=== PATIENT | male | born 1985 | race African-American/Black ===

== ENCOUNTER 2024-02-06 16:43 | Inpatient (IN) | payer OTHER, SELFPAY ==
[2024-02-06] VITALS (45 sets, daily range): BP systolic 119–154; BP diastolic 62–102; PULSE 109–141; RESP 16–34; TEMP 36.3–36.6; O2SAT 93–100; BMI 38.0
--- NOTE | 2024-02-06 18:27 | ED_ITS ---
HPI - General Adult 2 General: Chief complaint: General Medical Stated complaint: SOB, high BP, dehydrated, doctor sent Time Seen by Provider: 02/06/24 18:22 History of Present Illness: 38-year-old male patient comes in today with complaints of being dehydrated. Patient reports that it was his birthday over the weekend and he had celebrated too heavily. Patient states that he usually takes metformin which controls his blood glucose well. Patient went to see Dr. Pace today just for feeling poorly and it was noted his blood glucose was above 500. He referred him to the ER for further evaluation and treatment. Patient is alert and oriented. Patient appears nontoxic. Review of Systems 2 General: Reports: 10 or more systems reviewed and unremarkable except in HPI and below Physical Exam 2 Const: COMMON NORMALS: alert HENMT: COMMON NORMALS: normocephalic HEAD & SCALP: normocephalic Neck/C-Spine: COMMON NORMALS: full ROM Resp: COMMON NORMALS: normal respiratory effort and clear to auscultation bilaterally AUSCULTATION: clear to auscultation bilaterally Cardio: COMMON NORMALS: regular rate RATE: regular rate GI: COMMON NORMALS: non-tender Back/Pelvis: COMMON NORMALS: thoracic and lumbar spine normal to inspection Extremity: COMMON NORMALS: full ROM Neuro: SENSORIUM/ORIENTATION: Yes alert Skin: COMMON NORMALS: turgor normal GENERAL SKIN EXAM: turgor normal Course 2 Vital Signs: Vital signs: Vital Signs Temperature 97.9 F 02/06/24 20:56 Pulse Rate 117 H 02/06/24 20:22 Respiratory Rate 16 02/06/24 20:22 Blood Pressure 119/62 02/06/24 20:22 Pulse Oximetry 94 02/06/24 20:22 Oxygen Delivery Me thod Room Air 02/06/24 20:41 MDM - General Adult Medical Decision Making Patient came in today for concerns of elevated blood glucose. Patient appears nontoxic. Patient reports no nausea vomiting. Skin is warm and dry. Vital signs note a blood pressure 123/82. Pulse was elevated at 114. Patient is afebrile. Differential diagnosis includes but not limited to DKA, nonketotic acidosis hyperosmolar diabetic syndrome, hyperglycemia, dehydration. 194, patient was noted to have ketones I discussed this with Dr. Becerra who we put in a DKA protocol. Added ABG orders, phosphorus and magnesium. Patient had already been given 10 units of Humalog subcu we added another 9 units IV push. Patient be continued on IV fluid bolus. And given 1 g of calcium gluconate for a potassium of 6.4. We will continue to push IV fluids. Dr. Becerra recommended talking with the hospitalist for further recommendations of treatment plan. Dr. Alexander was consulted who agreed to admission and continuing treatment. Lab Data 02/06/24 18:34 02/06/24 18:34 Laboratory Results WBC 9.79 10^3/uL (3.29-11.43) 02/06/24 18:34 RBC 7.39 10^6/uL (3.85-5.65) H 02/06/24 18:34 Hgb 14.80 g/dL (11.27-16.99) 02/06/24 18:34 Hct 47.6 % (37-53) 02/06/24 18:34 MCV 64.4 fl (82-101) L 02/06/24 18:34 MCH 20.0 pg (27-33) L 02/06/24 18:34 MCHC 31.1 g/dL (30-55) 02/06/24 18:34 RDW 18.1 % (12.1-15.1) H 02/06/24 18:34 Plt Count 317 10^3/cmm (157-399) 02/06/24 18:34 MPV TNP 02/06/24 18:34 Neut % (Auto) 84.0 % 02/06/24 18:34 Lymph % (Auto) 8.3 % 02/06/24 18:34 [place] % (Auto) 6.9 % 02/06/24 18:34 Eos % (Auto) 0.0 % 02/06/24 18:34 Baso % (Auto) 0.2 % 02/06/24 18:34 Neut # (Auto) 8.22 10^3/uL (1.8-7.7) H 02/06/24 18:34 Lymph # (Auto) 0.8 10^3/uL (0.8-4.8) 02/06/24 18:34 [place] # (Auto) 0.7 10^3/uL (0.2-0.9) 02/06/24 18:34 Eos # (Auto) 0.0 10^3/uL (0.0-0.8) 02/06/24 18:34 Baso # (Auto) 0.0 10^3/uL (0.0-0.1) 02/06/24 18:34 Nucleated RBC % (auto) 0 % 02/06/24 18:34 Nucleated RBCs # 0.0 /100WBC 02/06/24 18:34 Specimen Type Arterial 02/06/24 19:30 Sample Site Radial, right 02/06/24 19:30 ABG pH 7.22 (7.35-7.45) L 02/06/24 19:30 ABG pCO2 22.7 mmHg (35-45) L 02/06/24 19:30 ABG pO2 114.0 mmHg (80.0-100.0) H 02/06/24 19:30 ABG HCO3 9.3 mmol/L (22-26) L 02/06/24 19:30 ABG Base Excess -16.3 mmol/L (-2.0-2.0) L 02/06/24 19:30 Romie Test Pos 02/06/24 19:30 Hematocrit 45.3 % (42-52) 02/06/24 19:30 O2 Delivery Device Room air 02/06/24 19:30 Order Processor ID [email or web address] 02/06/24 19:30 Sodium 123 mmol/L (136-145) L 02/06/24 18:34 Potassium 6.4 mmol/L (3.5-5.1) H 02/06/24 18:34 Chloride 81 mmol/L (98-107) L 02/06/24 18:34 Carbon Dioxide 10 mmol/L (22-29) L 02/06/24 18:34 Anion Gap 38.4 (5-19) H 02/06/24 18:34 BUN 32 mg/dL (6-20) H 02/06/24 18:34 Creatinine 2.0 mg/dL (0.7-1.2) H 02/06/24 18:34 GFR Calculation 45.5 mL/min (90-130) L 02/06/24 18:34 Glucose 1237 mg/dL (65-115) H* 02/06/24 18:34 POC Glucose > 600 mg/dL (70-110) H* 02/06/24 19:12 Calculated Osmolality 326 mOsm/kg (285-295) H 02/06/24 18:34 Calcium 10.7 mg/dL (8.5-10.5) H 02/06/24 18:34 Phosphorus 6.6 mg/dL (2.5-4.5) H 02/06/24 18:34 Magnesium 3.2 mg/dL (1.7-2.3) H 02/06/24 18:34 Total Bilirubin 0.5 mg/dL (0.15-1.2) 02/06/24 18:34 AST 19 U/L (0-40) 02/06/24 18:34 ALT 49 U/L (0-41) H 02/06/24 18:34 Alkaline Phosphatase 117 U/L (40-130) 02/06/24 18:34 Total Protein 8.4 g/dL (6.6-8.7) 02/06/24 18:34 Albumin 4.7 g/dL (3.5-5.2) 02/06/24 18:34 Globulin 3.7 g/dL (1.3-4.6) 02/06/24 18:34 Urine Color Yellow (Yellow) 02/06/24 19:04 Urine Appearance Clear (CLEAR) 02/06/24 19:04 Urine pH 5 (5-7) 02/06/24 19:04 Ur Specific [place] 1.005 (1.005-1.030) 02/06/24 19:04 Urine Protein Neg (Negative) 02/06/24 19:04 Urine Glucose (UA) 4+ (Normal) H 02/06/24 19:04 Urine Ketones 2+ (Negative) H 02/06/24 19:04 Urine Blood Neg (Negative) 02/06/24 19:04 Urine Nitrate Negative (Negative) 02/06/24 19:04 Urine Bilirubin Neg (Negative) 02/06/24 19:04 Urine Urobilinogen Norm mg/dL (Negative) 02/06/24 19:04 Ur Leukocyte Esterase Negative (Negative) 02/06/24 19:04 Serum Ketones Positive (Negative) H 02/06/24 18:34 XR interpretation done by ED provider, pending radiology final review Discharge Plan Discharge Patient Disposition: Admitted As Inpatient Admit Provider: Benjamin,Campbell Clinical Impression: DKA (diabetic ketoacidosis) Qualifiers: Diabetes mellitus type: type 2 Diabetes mellitus complication detail: without coma Qualified Code(s): E11.10 - Type 2 diabetes mellitus with ketoacidosis without coma Condition: Stable Coding Level of Care Code ED Fire Control Technician G for Davie Phillips
[2024-02-06 18:54] LABS: Basophils % 0.2 %; Hematocrit 47.6 % (37-53); Lymphocytes # 0.8 10^3/uL (0.8-4.8); Lymphocytes % 8.3 %; Mean Corpuscular HGB Conc 31.1 g/dL (30-55); Mean Corpuscular Volume 64.4 fl (82-101); Monocytes # 0.7 10^3/uL (0.2-0.9); Monocytes % 6.9 %; Neutrophils # 8.22 10^3/uL (1.8-7.7); Nucleated Red Blood Cells % 0 %; Platelet Count 317 10^3/cmm (157-399); Red Blood Count 7.39 10^6/uL (3.85-5.65); Red Cell Distribution Width 18.1 % (12.1-15.1); White Blood Count 9.79 10^3/uL (3.29-11.43)
[2024-02-06 19:06] LABS: Ketone (Acetest) Serum Positive (Negative)
[2024-02-06] MEDS: sodium chloride 0.9% 1,000 ML 999 ML IV ×2 (19:13→21:31)
[2024-02-06 19:16] LABS: Add Urine Microscopic? NO; Charge for UA Resulting for Rev
[2024-02-06] MEDS: insulin lispro 100 unit/1 mL 10 UNIT SUBCUT (19:19)
[2024-02-06 19:21] LABS: Glucose Point of Care > 600 mg/dL (70-110)
[2024-02-06 19:26] LABS: Alanine Aminotransferase 49 U/L (0-41); Albumin Level 4.7 g/dL (3.5-5.2); Alkaline Phosphatase 117 U/L (40-130); Anion Gap 38.4 (5-19); Aspartate Amino Transferase 19 U/L (0-40); Blood Urea Nitrogen 32 mg/dL (6-20); Calcium 10.7 mg/dL (8.5-10.5); Carbon Dioxide 10 mmol/L (22-29); Chloride 81 mmol/L (98-107); Globulin 3.7 g/dL (1.3-4.6); Glomerular Filtration Rate 45.5 mL/min (90-130); Potassium 6.4 mmol/L (3.5-5.1); Sodium 123 mmol/L (136-145); Total Bilirubin 0.5 mg/dL (0.15-1.2); Total Protein 8.4 g/dL (6.6-8.7)
--- NOTE | 2024-02-06 19:30 | ECG_ITS ---
[facility] Test Date: 2024-02-06 Pat Name: Barrera Guerra Department: Room: [facility] Gender: Male Manager Income Tax: : 1985 Requested By: Oliver Becerra Order Number: [id number] Satish MD: Jazzy Monet M.D. Measurements Intervals [place] Rate: 116 P: 67 UT: 120 QRS: 22 QRSD: 93 T: 6 QT: 354 QTc: 494 Interpretive Statements SINUS TACHYCARDIA POSSIBLE LEFT ATRIAL ENLARGEMENT [-0.1mV P-WAVE IN V1/V2] NONSPECIFIC ST & T-WAVE ABNORMALITY ABNORMAL RHYTHM ECG No previous ECG available for comparison Electronically Signed On 02-06-2024 22:05:11 CDT by Jazzy Monet M.D. [id number]
[2024-02-06 19:33] LABS: Bilirubin Urine Neg (Negative); Blood Urine Neg (Negative); Glucose Urine UA 4+ (Normal); Ketones Urine 2+ (Negative); Leukocyte Esterase Urine Negative (Negative); Nitrate Urine Negative (Negative); Protein Urine Neg (Negative); Specific Gravity, Urine 1.005 (1.005-1.030); Urine Appearance Clear (CLEAR); Urine Color Yellow (Yellow); Urobilinogen Urine Norm (Negative); pH Urine 5 (5-7)
[2024-02-06 19:36] LABS: Osmolality Calculated 326 mOsm/kg (285-295)
[2024-02-06 19:37] LABS: Glucose 1237 mg/dL (65-115)
[2024-02-06 19:43] LABS: ABG PH Result 7.22 (7.35-7.45); Blood Gas Allen Test Pos; Blood Gas Sample Site Radial, right; Blood Gas Sample Type Arterial; Oxygen Device ROOM AIR
[2024-02-06 19:48] LABS: ABG PCO2 22.7 mmHg (35-45); Arterial Blood Gas Hematocrit 45.3 % (42-52); Base Excess ABG -16.3 mmol/L (-2.0-2.0); HCO3 ABG 9.3 mmol/L (22-26)
[2024-02-06 19:49] LABS: Magnesium 3.2 mg/dL (1.7-2.3); Phosphorus 6.6 mg/dL (2.5-4.5)
[2024-02-06] MEDS: insulin regular-human 100 units/1 mL 9 UNIT IVP (20:04)
[2024-02-06] MEDS: calcium gluconate 0.1 gm/mL 10% SDV 10mL 1 GM IVP (20:05)
[2024-02-06] MEDS: INSULIN REGULAR IN 0.9 % NACL 100 UNIT/100 ML BAG 15 UNIT IV (20:51)
[2024-02-06] MEDS: heparin 5,000 unit/mL INJ 1 mL 5000 UNIT SUBCUT (21:20)
[2024-02-06] MEDS: pantoprazole 40 mg SDV IVP (21:21)
[2024-02-06 21:29] LABS: Glucose Point of Care > 600 mg/dL (70-110)
[2024-02-06] MEDS: sodium chloride 0.9% 1,000 ML 150 ML IV (21:32)
[2024-02-06 21:47] LABS: Anion Gap 35.4 (5-19); Blood Urea Nitrogen 31 mg/dL (6-20); Calcium 10.9 mg/dL (8.5-10.5); Carbon Dioxide 11 mmol/L (22-29); Chloride 89 mmol/L (98-107); Creatinine Clr Calc Pharmacy 70.6442; Glomerular Filtration Rate 48.2 mL/min (90-130); Potassium 4.4 mmol/L (3.5-5.1); Sodium 131 mmol/L (136-145)
[2024-02-06 21:58] LABS: Procalcitonin 0.25 ng/mL (0-0.5); Thyroid Stimulating Hormone 0.16 uIU/mL (0.27-4.20)
[2024-02-06 22:06] LABS: Osmolality Calculated 321 mOsm/kg (285-295)
[2024-02-06 22:09] LABS: Iron 65 ug/dL (59-158); Percent Saturation 22.2 % (20-50); Total Iron Binding Capacity 292 mcg/dl; Unsaturated Iron Binding 227 ug/dL (112-347)
[2024-02-06 22:11] LABS: Glucose 862 mg/dL (65-115)
--- NOTE | 2024-02-06 22:15 | PC.NURSE ---
Insulin drip titration: Patient's blood sugar 862, insulin drip protocol said to increase to 16.5 units, pump hard limit is 15units. Dr. Dominguez was contacted and gave telephone orders to titrate drip to 15units.
[2024-02-06 23:08] LABS: Glucose Point of Care 596 mg/dL (70-110)
--- NOTE | 2024-02-06 23:14 | PC.NURSE ---
Insulin drip titration: Patient's blood sugar went from 862 to 596 since titration of drip to 15 units. Protocol says to increase units by 3, Dr. Dominguez was contacted and gave telephone orders to titrate the drip DOWN 3 units to 13 units.
--- NOTE | 2024-02-06 23:34 | P.HP_ITS ---
Providers/Chief Complaint 2 Admitting Physician: Campbell Alexander MD Primary Care Provider: Adolfo Pace MD Chief Complaint: SOB, high BP, dehydrated, doctor sent History of Present Illness Barrera Guerra is a 38 year old male with a known history of diabetes mellitus diagnosed around 2 years ago, typically on metformin 500 mg daily. Presented to the hospital today with chief complaints of noticing high blood sugar levels at home. Patient states that he has recently had dietary indiscretion. It was his birthday over the weekend and to celebrate he had alcohol, orange juice and has been drinking [employer] frappe's recently. His blood sugar tested at home was more than 500. He has been having abdominal pain. Today he had no appetite and ate mostly oranges and then proceeded to have vomiting. He had been able unable to hold on to any p.o. intake. Typically follows with Dr. Pace as an outpatient. States that recently Ozempic was added to his treatment regimen. Does not recall his A1c. Denies feeling sick recently. No diarrhea. No URI type symptoms. No cough dyspnea palpitations or syncope. He is alert awake and oriented, however does appear to be falling asleep very easily when not engaged in conversation. Appears to be dehydrated. Review of Systems 2 General: Reports: 10 or more systems reviewed and unremarkable except in HPI and below Const: Denies: fever(s), chills or body aches Eyes: Denies: change in vision, blurry vision or photophobia ENMT: Reports: hoarseness; Denies: throat pain, enlarged tonsils, odynophagia or nasal congestion Card: Denies: chest pain, palpitations, irregular heart rhythm, edema, swelling of feet/ankles, lightheadedness, pre-syncope, dyspnea on exertion or orthopnea Resp: Denies: dyspnea, productive cough, non-productive cough, wheezing, stridor, pain on inspiration, change in phlegm color, hemoptysis or chest congestion GI: Denies: abdominal pain, nausea, vomiting, hematemesis, coffee ground emesis, dysphagia, heartburn, diarrhea, constipation, GI cramping, change in stool character, hematochezia or melena : Denies: flank pain, dysuria, urinary frequency, urinary urgency, urinary hesitancy or hematuria Musc: Denies: neck pain, back pain, extremity pain, joint swelling, joint warmth or deformity Neuro: Denies: headache(s), numbness in extremities, weakness in extremities, sensory changes, difficulty walking, frequent falls, dizziness, vertigo, behavioral changes, Slurred speech present or seizure-like activity Psych: Denies: anxiety, depression, suicidal ideation or homicidal ideation Endo: Denies: polyuria, polydipsia, tired all the time, cold intolerance or hot flashes Good/Lymph: Denies: easy bruising or easy bleeding Medications/Allergies Allergies Allergy/AdvReac Type Severity Reaction Status Date / Time No Known Drug Allergies Allergy Unknown Verified 02/06/24 17:09 PFSH Acute 2 PFSH: Medical History (Updated 02/07/24 @ 01:17 by Genevieve Dominguez MD) Diabetes mellitus Vitals/I&O/Wt Last Vital Signs Temp 97.9 F 02/06/24 20:56 Pulse 123 H 02/06/24 20:56 Resp 16 02/06/24 20:22 BP 119/62 02/06/24 20:22 Pulse Ox 94 02/06/24 20:22 O2 Del Method Room Air 02/06/24 20:41 02/06/24 02/06/24 02/07/24 14:59 22:59 06:59 Intake Total 2018.3 / 2018.08.19 / 2030.55 Output Total 950 / 950 Balance 1069.3 / 1069.3 08.19 / 1.55 Weight last 48 hrs Weight 123.916 kg Weight 123.831 kg Physical Exam 2 Narrative: General: No acute distress, AO x3, appears dehydrated HEENT: PERRLA, pupils bilaterally equal and reactive, pallors not present Chest: Normal vesicular breath sounds, no added sounds, equal good air entry bilaterally CVS: S1-S2 regular, no murmurs, no tachycardia, no gallops, no rubs Abdomen: Soft, nontender, no organomegaly, bowel sounds present Neuro: No focal deficits, no facial deformity, AO x3, power 5/5 in all limbs Data 02/06/24 18:34 02/07/24 00:20 ABG Interpretation 1: 02/06/24 19:30 ABG pH 7.22 L ABG pCO2 22.7 L ABG pO2 114.0 H ABG HCO3 9.3 L ABG Base Excess -16.3 L Other data: Laboratory Results WBC 9.79 10^3/uL (3.29-11.43) 02/06/24 18:34 RBC 7.39 10^6/uL (3.85-5.65) H 02/06/24 18:34 Hgb 14.80 g/dL (11.27-16.99) 02/06/24 18:34 Hct 47.6 % (37-53) 02/06/24 18: MCV 64.4 fl (82-101) L 02/06/24 18:34 MCH 20.0 pg (27-33) L 02/06/24 18: MCHC 31.1 g/dL (30-55) 02/06/24 18: RDW 18.1 % (12.1-15.1) H 02/06/24 18:34 Plt Count 317 10^3/cmm (157-399) 02/06/24 18: MPV TNP 02/06/24 18:34 Neut % (Auto) 84.0 % 02/06/24 18:34 Lymph % (Auto) 8.3 % 02/06/24 18:34 [place] % (Auto) 6.9 % 02/06/24 18: Eos % (Auto) 0.0 % 02/06/24 18: Baso % (Auto) 0.2 % 02/06/24 18:34 Neut # (Auto) 8.22 10^3/uL (1.8-7.7) H 02/06/24 18:34 Lymph # (Auto) 0.8 10^3/uL (0.8-4.8) 02/06/24 18:34 [place] # (Auto) 0.7 10^3/uL (0.2-0.9) 02/06/24 18:34 Eos # (Auto) 0.0 10^3/uL (0.0-0.8) 02/06/24 18:34 Baso # (Auto) 0.0 10^3/uL (0.0-0.1) 02/06/24 18:34 Nucleated RBC % (auto) 0 % 02/06/24 18: Nucleated RBCs # 0.0 /100WBC 02/06/24 18:34 Specimen Type Arterial 02/06/24 19:30 Sample Site Radial, right 02/06/24 19:30 ABG pH 7.22 (7.35-7.45) L 02/06/24 19:30 ABG pCO2 22.7 mmHg (35-45) L 02/06/24 19:30 ABG pO2 114.0 mmHg (80.0-100.0) H 02/06/24 19:30 ABG HCO3 9.3 mmol/L (22-26) L 02/06/24 19:30 ABG Base Excess -16.3 mmol/L (-2.0-2.0) L 02/06/24 19:30 Romie Test Pos 02/06/24 19:30 Hematocrit 45.3 % (42-52) 02/06/24 19:30 O2 Delivery Device Room air 02/06/24 19:30 Fabrication And Layout Craftsman ID [email or web address] 02/06/24 19:30 Sodium 131 mmol/L (136-145) L 02/06/24 21:15 Potassium 3.9 mmol/L (3.5-5.1) 02/07/24 00:20 Chloride 89 mmol/L (98-107) L 02/06/24 21:15 Carbon Dioxide 11 mmol/L (22-29) L 02/06/24 21:15 Anion Gap 35.4 (5-19) H 02/06/24 21:15 BUN 31 mg/dL (6-20) H 02/06/24 21:15 Creatinine 1.9 mg/dL (0.7-1.2) H 02/06/24 21:15 GFR Calculation 48.2 mL/min (90-130) L 02/06/24 21:15 Glucose 862 mg/dL (65-115) H* 02/06/24 21:15 Glucose Cancelled 02/06/24 21:15 POC Glucose 480 mg/dL (70-110) H 02/07/24 00:15 Calculated Osmolality 321 mOsm/kg (285-295) H 02/06/24 21:15 Calcium 10.9 mg/dL (8.5-10.5) H 02/06/24 21:15 Phosphorus 6.6 mg/dL (2.5-4.5) H 02/06/24 18:34 Magnesium 3.2 mg/dL (1.7-2.3) H 02/06/24 18:34 Iron 65 ug/dL (59-158) 02/06/24 21:15 TIBC 292 mcg/dl 02/06/24 21:15 % Saturation 22.2 % (20-50) 02/06/24 21:15 Unsat Iron Binding 227 ug/dL (112-347) 02/06/24 21:15 Total Bilirubin 0.5 mg/dL (0.15-1.2) 02/06/24 18:34 AST 19 U/L (0-40) 02/06/24 18:34 ALT 49 U/L (0-41) H 02/06/24 18:34 Alkaline Phosphatase 117 U/L (40-130) 02/06/24 18:34 Total Protein 8.4 g/dL (6.6-8.7) 02/06/24 18:34 Albumin 4.7 g/dL (3.5-5.2) 02/06/24 18:34 Globulin 3.7 g/dL (1.3-4.6) 02/06/24 18:34 Procalcitonin 0.25 ng/mL (0-0.5) 02/06/24 21:15 TSH 0.16 uIU/mL (0.27-4.20) L 02/06/24 21:15 Urine Color Yellow (Yellow) 02/06/24 19:04 Urine Appearance Clear (CLEAR) 02/06/24 19:04 Urine pH 5 (5-7) 02/06/24 19:04 Ur Specific [place] 1.005 (1.005-1.030) 02/06/24 19:04 Urine Protein Neg (Negative) 02/06/24 19:04 Urine Glucose (UA) 4+ (Normal) H 02/06/24 19:04 Urine Ketones 2+ (Negative) H 02/06/24 19:04 Urine Blood Neg (Negative) 02/06/24 19:04 Urine Nitrate Negative (Negative) 02/06/24 19:04 Urine Bilirubin Neg (Negative) 02/06/24 19:04 Urine Urobilinogen Norm mg/dL (Negative) 02/06/24 19:04 Ur Leukocyte Esterase Negative (Negative) 02/06/24 19:04 Serum Ketones Positive (Negative) H 02/06/24 18:34 A&P Assessment and plan (1) DKA (diabetic ketoacidosis): Diabetic ketoacidosis as evidenced by blood sugar greater than 1200 upon arrival, positive serum ketones, anion gap of 35, ABG with metabolic acidosis. Start patient on insulin drip as per DKA/HHS protocol with target blood sugars between 100-130 normal saline at 150 cc/h. We will switch to D5 NS once blood sugar less than 250. Monitor BMP every 4 hours. Once potassium less than 4 we will add 20 mg of potassium to IV fluids. He received ca gluconate in the ER as K upon arrival was at 6.4, now downtrending with insulin infusion check Hba1c Check TSH Monitor saturations. Maintain over 90%. Transition to sliding scale and long-acting insulin once anion gap resolves. Keep NPO exacept sips and chips until gap closes Qualifiers: Diabetes mellitus complication detail: without coma Diabetes mellitus type: type 2 Qualified Code(s): E11.10 - Type 2 diabetes mellitus with ketoacidosis without coma (2) SUSAN (acute kidney injury): Acute kidney injury, creatinine at 2.0. Suspect this is related to dehydration. Unknown last baseline. IV fluid normal saline at 150 cc an hour Closely monitor serial creatinine and urine output (3) Hyperkalemia: Resolved at the time of this assessment. Initially upon ER arrival, potassium was at 6.4. He did receive calcium gluconate IV in the ER. Currently downtrending potassium with insulin therapy. Target potassium of 4 to 5.3 with DKA management. Plan Tachycardia : sinus tachycardia HR 120s, likely 2/2 dehydration . monitor for now DVT ppx: Heparin 5000 s/c q8h Full code Attestations 2 Medical Necessity Statement*: > 2 midnight stay is anticipated for management of DKA Critical Care Time: The high probability of a clinically significant, sudden or life threatening deterioration of the patient's [endocrine, cardiac, renal] system(s) required my full and direct attention, intervention and personal management. The critical care time is as shown. This time is in addition to time spent performing any reported procedures but includes the following: [x] Data and vital sign review and interpretation [x] Patient assessment, examination and intervention [x] Documentation [x] Medication orders and management Critical Care Time (min): 45 Coding Level of Care Code Critical Care >/= 30 minutes Diagnoses DKA (diabetic ketoacidosis) E11.10 Diabetes mellitus complication detail: without coma Diabetes mellitus type: type 2 SUSAN (acute kidney injury) N17.9 Hyperkalemia E87.5
[2024-02-07] VITALS (48 sets, daily range): BP systolic 76–148; BP diastolic 40–111; PULSE 81–127; RESP 9–28; TEMP 36.5–36.9; O2SAT 93–100; BMI 38.4
[2024-02-07] MEDS: ondansetron 2 mg/ML SDV 2 mL 4 MG IVP (00:01)
--- NOTE | 2024-02-07 00:16 | PC.NURSE ---
Insulin drip titration: Patient's blood sugar dropped from 596 to 480, Dr. Dominguez was visiting patient at bedside and gave verbal orders to titrate the drip from 13 units to 15 units.
[2024-02-07 00:40] LABS: Glucose Point of Care 480 mg/dL (70-110)
[2024-02-07 00:57] LABS: Anion Gap 28.9 (5-19); Blood Urea Nitrogen 32 mg/dL (6-20); Calcium 10.7 mg/dL (8.5-10.5); Carbon Dioxide 12 mmol/L (22-29); Chloride 94 mmol/L (98-107); Glomerular Filtration Rate 48.2 mL/min (90-130); Osmolality Calculated 302 mOsm/kg (285-295); Potassium 3.9 mmol/L (3.5-5.1); Sodium 131 mmol/L (136-145)
[2024-02-07 01:03] LABS: Creatinine Clr Calc Pharmacy 70.6442
[2024-02-07 01:04] LABS: Glucose Point of Care 488 mg/dL (70-110)
[2024-02-07 01:04] LABS: Glucose 523 mg/dL (65-115)
--- NOTE | 2024-02-07 01:34 | PC.NURSE ---
Insulin drip titration: Patient's blood sugar went from 480 to 488, Dr. Dominguez was contacted and gave telephone orders to titrate drip to 17 units.
[2024-02-07 02:08] LABS: Glucose Point of Care 404 mg/dL (70-110)
--- NOTE | 2024-02-07 02:30 | PC.NURSE ---
Insulin drip titration: blood sugar was 404, Dr. Dominguez gave telephone orders to keep drip at 17 units.
[2024-02-07] MEDS: INSULIN REGULAR IN 0.9 % NACL 100 UNIT/100 ML BAG 17 UNIT IV (02:36)
[2024-02-07 03:06] LABS: Glucose Point of Care 356 mg/dL (70-110)
[2024-02-07 04:19] LABS: Glucose Point of Care 324 mg/dL (70-110)
[2024-02-07 04:19] LABS: Basophils % 0.3 %; Eosinophils % 0.1 %; Hematocrit 44.6 % (37-53); Lymphocytes # 1.3 10^3/uL (0.8-4.8); Mean Corpuscular HGB Conc 31.4 g/dL (30-55); Mean Corpuscular Hemoglobin 19.9 pg (27-33); Mean Corpuscular Volume 63.4 fl (82-101); Monocytes % 9.2 %; Neutrophils # 8.53 10^3/uL (1.8-7.7); Neutrophils % 77.8 %; Nucleated Red Blood Cells % 0 %; Platelet Count 300 10^3/cmm (157-399); Red Blood Count 7.03 10^6/uL (3.85-5.65); Red Cell Distribution Width 17.3 % (12.1-15.1); White Blood Count 10.97 10^3/uL (3.29-11.43)
[2024-02-07 04:31] LABS: Estmated Average Glucose 269
[2024-02-07 04:38] LABS: Chol HDL Ratio 6.16 mg/dL (1.0-5.00); Cholesterol 234 mg/dL (0-200); HDL Cholesterol 38 mg/dL (60-100); Triglycerides 834 mg/dL (0-150); VLDL Cholestrol Calculation 167 mg/dL (0-30)
[2024-02-07 04:48] LABS: Alanine Aminotransferase 39 U/L (0-41); Albumin Level 4.2 g/dL (3.5-5.2); Alkaline Phosphatase 76 U/L (40-130); Anion Gap 22.9 (5-19); Aspartate Amino Transferase 16 U/L (0-40); Blood Urea Nitrogen 34 mg/dL (6-20); Calcium 10.2 mg/dL (8.5-10.5); Carbon Dioxide 15 mmol/L (22-29); Chloride 102 mmol/L (98-107); Globulin 3.3 g/dL (1.3-4.6); Glucose 322 mg/dL (65-115); Magnesium 2.9 mg/dL (1.7-2.3); Osmolality Calculated 302 mOsm/kg (285-295); Phosphorus 2.8 mg/dL (2.5-4.5); Potassium 3.9 mmol/L (3.5-5.1); Sodium 136 mmol/L (136-145); T3 Free 1.7 PG/ML (2.0-4.4); Total Bilirubin 0.4 mg/dL (0.15-1.2); Total Protein 7.5 g/dL (6.6-8.7)
[2024-02-07 04:55] LABS: Creatinine Clr Calc Pharmacy 63.9162; LDL Cholesterol Direct 69 mg/dL (0-100)
[2024-02-07 04:57] LABS: Folate Level 6.2 ng/mL (4.5-32.2); Slide Review Slide Review Perform
[2024-02-07] MEDS: heparin 5,000 unit/mL INJ 1 mL 5000 UNIT SUBCUT ×3 (05:00→20:34)
[2024-02-07] MEDS: sodium chloride 0.9% 1,000 ML 150 ML IV (05:00)
[2024-02-07 05:09] LABS: Glucose Point of Care 266 mg/dL (70-110)
[2024-02-07 06:04] LABS: Glucose Point of Care 233 mg/dL (70-110)
[2024-02-07] MEDS: dextrose 5%-sod chloride 0.9% 1,000 ML 150 ML IV ×2 (06:06→13:48)
[2024-02-07 07:05] LABS: Glucose Point of Care 206 mg/dL (70-110)
[2024-02-07 08:13] LABS: Glucose Point of Care 195 mg/dL (70-110)
[2024-02-07 08:24] LABS: Anion Gap 18.6 (5-19); Blood Urea Nitrogen 32 mg/dL (6-20); Carbon Dioxide 19 mmol/L (22-29); Chloride 107 mmol/L (98-107); Creatinine Clr Calc Pharmacy 74.8724; Glomerular Filtration Rate 51.4 mL/min (90-130); Glucose 191 mg/dL (65-115); Osmolality Calculated 304 mOsm/kg (285-295); Potassium 3.6 mmol/L (3.5-5.1); Sodium 141 mmol/L (136-145)
[2024-02-07] MEDS: INSULIN REGULAR IN 0.9 % NACL 100 UNIT/100 ML BAG 8 UNIT IV (09:12)
[2024-02-07 09:18] LABS: Glucose Point of Care 164 mg/dL (70-110)
--- NOTE | 2024-02-07 09:18 | PC.PHAR ---
[facility] PHARMACIST STATES PT HAS OZEMPIC ORDER BUT HAS NOT PICKED UP DUE TO INSURANCE NON-COVERAGE.
[2024-02-07 10:06] LABS: Glucose Point of Care 212 mg/dL (70-110)
[2024-02-07 10:41] LABS: Blood Urea Nitrogen 30 mg/dL (6-20); Calcium 9.7 mg/dL (8.5-10.5); Carbon Dioxide 17 mmol/L (22-29); Chloride 106 mmol/L (98-107); Creatinine Clr Calc Pharmacy 84.2315; Glomerular Filtration Rate 58.8 mL/min (90-130); Glucose 195 mg/dL (65-115); Osmolality Calculated 300 mOsm/kg (285-295); Sodium 139 mmol/L (136-145)
[2024-02-07 10:44] LABS: Anion Gap 19.9 (5-19); Potassium 3.9 mmol/L (3.5-5.1)
[2024-02-07 11:07] LABS: Glucose Point of Care 248 mg/dL (70-110)
[2024-02-07 12:21] LABS: Glucose Point of Care 277 mg/dL (70-110)
[2024-02-07 12:51] LABS: Anion Gap 21.9 (5-19); Blood Urea Nitrogen 27 mg/dL (6-20); Calcium 9.7 mg/dL (8.5-10.5); Carbon Dioxide 16 mmol/L (22-29); Chloride 102 mmol/L (98-107); Creatinine Clr Calc Pharmacy 89.8469; Glomerular Filtration Rate 63.4 mL/min (90-130); Glucose 285 mg/dL (65-115); Osmolality Calculated 297 mOsm/kg (285-295); Potassium 3.9 mmol/L (3.5-5.1); Sodium 136 mmol/L (136-145)
[2024-02-07 13:14] LABS: Glucose Point of Care 292 mg/dL (70-110)
--- NOTE | 2024-02-07 13:31 | P.PN_ITS ---
Subjective 2 Subjective: Admitted overnight. Today morning seen laying comfortably in bed in ICU. Patient is awake and alert. Denies any nausea, vomiting, headache. Having ice chips. Vitals/I&O/Wt Last Vital Signs Temp 97.9 F 02/07/24 07:30 Pulse 84 02/07/24 11:30 Resp 21 H 02/07/24 11:30 BP 139/84 02/07/24 11:30 Pulse Ox 98 02/07/24 11:30 O2 Del Method Room Air 02/07/24 11:30 02/06/24 02/07/24 02/07/24 22:59 06:59 14:59 Intake Total 2019.3 / 2018.3 1501.533 / 3520.833 152.700 / 152.700 Output Total 950 / 950 1175 / 1175 Balance 1069.3 / 1069.3 1501.533 / 2570.833 -1022.300 / -1022.300 Weight last 48 hrs Weight 124.88 kg Weight 123.916 kg Weight 123.831 kg Physical Exam 2 Narrative: General: No acute distress, AO x3, appears dehydrated HEENT: PERRLA, pupils bilaterally equal and reactive, pallors not present Chest: Normal vesicular breath sounds, no added sounds, equal good air entry bilaterally CVS: S1-S2 regular, no murmurs, no tachycardia, no gallops, no rubs Abdomen: Soft, nontender, no organomegaly, bowel sounds present Neuro: No focal deficits, no facial deformity, AO x3, power 5/5 in all limbs Data 02/07/24 03:44 02/07/24 12:26 A&P Assessment and plan (1) DKA (diabetic ketoacidosis): Anion gap still elevated. A1c of 11. Continue D5 NS for now but increase rate to 200 cc/h. Insulin drip. Monitor electrolytes every 6 hour. Maintain potassium around 4. Keep NPO. Will switch to insulin sliding scale once anion gap closes. Patient will most likely will need to be discharged on insulin going forward given A1c of 11. Qualifiers: Diabetes mellitus complication detail: without coma Diabetes mellitus type: type 2 Qualified Code(s): E11.10 - Type 2 diabetes mellitus with ketoacidosis without coma (2) SUSAN (acute kidney injury): Acute kidney injury, creatinine at 2.0. Most likely in setting of dehydration. Patient does take losartan and hydrochlorothiazide at home. Medical reconstruction done for nephrotoxic drugs. Monitor BMP as above. Fluid as above. Appreciate urinalysis on admission. (3) Hyperkalemia: Resolved. Continue to monitor. Plan Tachycardia : sinus tachycardia HR 120s, likely 2/2 dehydration . monitor for now Abnormal TSH: TSH low. Check free T3 and free T4. Does not give any history of thyroid abnormality in the past. Will start treatment as per free T3 and free T4 levels. Hyperlipidemia: Appreciate lipid panel. Triglyceride level around 800. Check lipase level. Most likely will need to repeat triglyceride level every 12 hours for now. DVT ppx: Heparin 5000 s/c q8h Full code NPO. Protonix OPD prophylaxis Attestations 2 Medical Necessity Statement*: Requires further hospitalization for management of high anion gap metabolic acidosis in setting of DKA, acute kidney injury Critical Care Time: The high probability of a clinically significant, sudden or life threatening deterioration of the patient's [renal, endocrine] system(s) required my full and direct attention, intervention and personal management. The critical care time is as shown. This time is in addition to time spent performing any reported procedures but includes the following: [x] Data and vital sign review and interpretation [x] Patient assessment, examination and intervention [x] Documentation [x] Medication orders and management Critical Care Time (min): 60 Coding Level of Care Code Critical Care >/= 30 minutes Critical care time (in minutes): 60 The high probability of a clinically significant, sudden or life threatening deterioration, as referenced in this documentation, required my full and direct attention, intervention and personal management. The critical care time shown is in addition to time spent performing any reported separately billable procedures and includes the following: [x] Data and vital sign review and interpretation [x ] Patient assessment, examination and intervention [x] Medication orders and management [x] Patient/Family updates as able [x] Care Coordination and Documentation. Diagnoses DKA (diabetic ketoacidosis) E11.10 Diabetes mellitus complication detail: without coma Diabetes mellitus type: type 2 SUSAN (acute kidney injury) N17.9 Hyperkalemia E87.5
[2024-02-07 14:04] LABS: Glucose Point of Care 349 mg/dL (70-110)
[2024-02-07 15:28] LABS: Glucose Point of Care 303 mg/dL (70-110)
[2024-02-07 16:31] LABS: Glucose Point of Care 289 mg/dL (70-110)
[2024-02-07 17:15] LABS: Anion Gap 18.8 (5-19); Blood Urea Nitrogen 24 mg/dL (6-20); Calcium 9.5 mg/dL (8.5-10.5); Carbon Dioxide 17 mmol/L (22-29); Chloride 105 mmol/L (98-107); Creatinine Clr Calc Pharmacy 96.2645; Glomerular Filtration Rate 68.6 mL/min (90-130); Glucose 287 mg/dL (65-115); Osmolality Calculated 299 mOsm/kg (285-295); Potassium 3.8 mmol/L (3.5-5.1); Sodium 137 mmol/L (136-145)
[2024-02-07 17:18] LABS: Glucose Point of Care 277 mg/dL (70-110)
[2024-02-07 18:12] LABS: Lipase 1175 U/L (13-60)
[2024-02-07 18:23] LABS: Glucose Point of Care 288 mg/dL (70-110)
[2024-02-07 19:29] LABS: Glucose Point of Care 255 mg/dL (70-110)
--- NOTE | 2024-02-07 20:08 | PC.NURSE ---
Shift summary: Pt has rested in bed or the recliner through the shift. He has had no complaints of pain. Sinus tach noted on monitor. he remains on room air, with clear lung sounds. Insulin gtt still infusing. IVF of D5/NS increased to 200ml/hr. Pt's anion gap increased this afternoon but is back down to 18.8 last BMP. His lipase and Triglycerides very elevated. this am his abdomen was soft and non tender. It is still soft but the left mid upper quadrant is tender to palpation this evening. Pt has been switched to strict NPO from sips and chips. Extensive education proved to pt by yuliya Aguilar today. Education on complications of high blood sugars also provided. Pt stoic but verbailzed understanding. He had 1825 in urine output. No Bm this shift.
[2024-02-07 20:09] LABS: Free T4 Free Thyroxine 1.13 ng/dL (0.82-1.77)
[2024-02-07 20:32] LABS: Glucose Point of Care 232 mg/dL (70-110)
[2024-02-07] MEDS: pantoprazole 40 mg SDV IVP (20:34)
[2024-02-07 21:09] LABS: Anion Gap 15.4 (5-19); Blood Urea Nitrogen 22 mg/dL (6-20); Calcium 9.2 mg/dL (8.5-10.5); Carbon Dioxide 20 mmol/L (22-29); Chloride 109 mmol/L (98-107); Creatinine Clr Calc Pharmacy 112.3086; Glucose 208 mg/dL (65-115); Osmolality Calculated 301 mOsm/kg (285-295); Potassium 3.4 mmol/L (3.5-5.1); Sodium 141 mmol/L (136-145); Triglycerides 619 mg/dL (0-150)
[2024-02-07 21:39] LABS: Glucose Point of Care 228 mg/dL (70-110)
[2024-02-07] MEDS: INSULIN REGULAR IN 0.9 % NACL 100 UNIT/100 ML BAG 10.5 UNIT IV (21:56)
[2024-02-07 22:07] LABS: LDL Cholesterol Direct 84 mg/dL (0-100)
[2024-02-07 23:05] LABS: Glucose Point of Care 218 mg/dL (70-110)
[2024-02-08] VITALS (22 sets, daily range): BP systolic 130–145; BP diastolic 70–107; PULSE 78–108; RESP 11–27; TEMP 37.3; O2SAT 90–100
[2024-02-08 00:38] LABS: Glucose Point of Care 172 mg/dL (70-110)
[2024-02-08] MEDS: dextrose 5%-sod chloride 0.9% 1,000 ML 150 ML IV ×2 (00:59→08:08)
[2024-02-08 01:37] LABS: Glucose Point of Care 192 mg/dL (70-110)
[2024-02-08 02:14] LABS: Anion Gap 14.5 (5-19); Blood Urea Nitrogen 19 mg/dL (6-20); Calcium 8.8 mg/dL (8.5-10.5); Carbon Dioxide 18 mmol/L (22-29); Chloride 110 mmol/L (98-107); Creatinine Clr Calc Pharmacy 112.3086; Glucose 210 mg/dL (65-115); Osmolality Calculated 296 mOsm/kg (285-295); Potassium 3.5 mmol/L (3.5-5.1); Sodium 139 mmol/L (136-145)
[2024-02-08 02:43] LABS: Glucose Point of Care 205 mg/dL (70-110)
[2024-02-08 03:31] LABS: Glucose Point of Care 201 mg/dL (70-110)
[2024-02-08 04:18] LABS: Basophils % 0.6 %; Eosinophils % 0.4 %; Hematocrit 46.4 % (37-53); Lymphocytes # 1.2 10^3/uL (0.8-4.8); Lymphocytes % 21.7 %; Mean Corpuscular HGB Conc 30.2 g/dL (30-55); Mean Corpuscular Volume 66.3 fl (82-101); Monocytes # 0.4 10^3/uL (0.2-0.9); Monocytes % 7.9 %; Neutrophils # 3.76 10^3/uL (1.8-7.7); Nucleated Red Blood Cells % 0 %; Platelet Count 196 10^3/cmm (157-399); Red Cell Distribution Width 18.1 % (12.1-15.1); White Blood Count 5.44 10^3/uL (3.29-11.43)
[2024-02-08 04:45] LABS: Alanine Aminotransferase 35 U/L (0-41); Alkaline Phosphatase 63 U/L (40-130); Aspartate Amino Transferase 24 U/L (0-40); Blood Urea Nitrogen 18 mg/dL (6-20); Carbon Dioxide 18 mmol/L (22-29); Chloride 112 mmol/L (98-107); Creatinine Clr Calc Pharmacy 112.3086; Globulin 2.5 g/dL (1.3-4.6); Glucose 226 mg/dL (65-115); Osmolality Calculated 305 mOsm/kg (285-295); Sodium 143 mmol/L (136-145); Total Bilirubin 0.5 mg/dL (0.15-1.2); Total Protein 6.5 g/dL (6.6-8.7)
[2024-02-08 04:46] LABS: Anion Gap 16.7 (5-19); Potassium 3.7 mmol/L (3.5-5.1)
[2024-02-08 04:47] LABS: Glucose Point of Care 241 mg/dL (70-110)
[2024-02-08] MEDS: heparin 5,000 unit/mL INJ 1 mL 5000 UNIT SUBCUT ×3 (04:51→20:41)
[2024-02-08 05:33] LABS: Glucose Point of Care 256 mg/dL (70-110)
[2024-02-08 06:57] LABS: Glucose Point of Care 247 mg/dL (70-110)
[2024-02-08] MEDS: aspirin 81 mg EC Tablet PO (08:06)
[2024-02-08 08:17] LABS: Glucose Point of Care 247 mg/dL (70-110)
[2024-02-08 09:15] LABS: Glucose Point of Care 250 mg/dL (70-110)
[2024-02-08 09:56] LABS: Anion Gap 14.4 (5-19); Blood Urea Nitrogen 16 mg/dL (6-20); Calcium 8.6 mg/dL (8.5-10.5); Carbon Dioxide 20 mmol/L (22-29); Chloride 111 mmol/L (98-107); Creatinine Clr Calc Pharmacy 123.3798; Glomerular Filtration Rate 90.6 mL/min (90-130); Glucose 251 mg/dL (65-115); Osmolality Calculated 304 mOsm/kg (285-295); Potassium 3.4 mmol/L (3.5-5.1); Sodium 142 mmol/L (136-145); Triglycerides 516 mg/dL (0-150)
[2024-02-08 10:05] LABS: Lipase 804 U/L (13-60)
[2024-02-08 10:06] LABS: Glucose Point of Care 257 mg/dL (70-110)
[2024-02-08 10:18] LABS: LDL Cholesterol Direct 84 mg/dL (0-100)
[2024-02-08] MEDS: insulin glargine 100 units/1 mL 15 UNIT SUBCUT ×2 (11:07→17:48)
[2024-02-08] MEDS: ezetimibe 10 mg Tablet PO (11:07)
[2024-02-08] MEDS: sodium chloride 0.9% 1,000 ML 100 ML IV ×2 (11:07→20:40)
[2024-02-08 12:08] LABS: Glucose Point of Care 268 mg/dL (70-110)
[2024-02-08] MEDS: insulin lispro 100 unit/1 mL SUBCUT ×3 (12:29→20:41)
[2024-02-08 14:59] LABS: Glucose Point of Care 283 mg/dL (70-110)
--- NOTE | 2024-02-08 15:07 | P.PN_ITS ---
Subjective 2 Subjective: Admitted overnight. Today morning seen laying comfortably in bed in ICU. Patient is awake and alert. Denies any nausea, vomiting, headache. Having ice chips. Vitals/I&O/Wt Last Vital Signs Temp 97.9 F 02/07/24 07:30 Pulse 84 02/08/24 14:47 Resp 20 H 02/08/24 13:00 BP 145/107 02/08/24 10:00 Pulse Ox 97 02/08/24 12:00 O2 Del Method Room Air 02/08/24 12:00 02/08/24 02/08/24 02/08/24 06:59 14:59 22:59 Intake Total 51.75 / 2413.559 2193.25 / 2193.25 Output Total 800 / 2625 400 / 400 Balance -748.25 / -829.621 8466.25 / 1793.25 Weight last 48 hrs Weight 126.552 kg Weight 124.88 kg Weight 123.916 kg Weight 123.831 kg Physical Exam 2 Narrative: General: No acute distress, AO x3, appears dehydrated HEENT: PERRLA, pupils bilaterally equal and reactive, pallors not present Chest: Normal vesicular breath sounds, no added sounds, equal good air entry bilaterally CVS: S1-S2 regular, no murmurs, no tachycardia, no gallops, no rubs Abdomen: Soft, nontender, no organomegaly, bowel sounds present Neuro: No focal deficits, no facial deformity, AO x3, power 5/5 in all limbs Data 02/08/24 03:38 02/08/24 09:29 A&P Assessment and plan (1) DKA (diabetic ketoacidosis): DKA has resolved. Anion gap is closed. Switch fluid to normal saline at 100 cc/h. Start on carb consistent diet. Start on Lantus 15 units twice daily along with insulin sliding scale low-dose protocol. Repeat BMP in 6 hours to make sure anion gap remains closed Qualifiers: Diabetes mellitus complication detail: without coma Diabetes mellitus type: type 2 Qualified Code(s): E11.10 - Type 2 diabetes mellitus with ketoacidosis without coma (2) SUSAN (acute kidney injury): Resolved. Most likely in setting of dehydration. Patient does take losartan and hydrochlorothiazide at home. Medical reconstruction done for nephrotoxic drugs. Monitor BMP as above. Fluid as above. Appreciate urinalysis on admission. Repeat BMP as above in 6 hours. (3) Hypertriglyceridemia: Triglyceride level found to be more than 800. Trending down to 516. Insulin drip discontinued as above. Continue to monitor triglyceride level every 12 hours for now. Start on ezetimibe 10 mg daily. (4) Pancreatitis: Most likely in setting of hypertriglyceridemia along with DKA. Lipase trending down. Patient denies any abdominal pain. Will continue to monitor. Zofran as needed. Discussed in detail with the patient regarding multiple small meals. (5) Hyperkalemia: Currently mild hypokalemia. Continue to monitor. (6) Hyperlipidemia: Uncontrolled. No past medical history. Start on atorvastatin 40 mg daily. (7) Blood pressure elevated without history of HTN: No past medical history. Goal blood pressure less than 140/90 mmHg. Will continue to monitor. If needed will start patient on amlodipine and beta- kayla. Plan Subclinical hypothyroidism: TSH low. Appreciate normal free T3 and free T4. DVT ppx: Heparin 5000 s/c q8h Full code Carb consistent diet Protonix OPD prophylaxis Attestations 2 Medical Necessity Statement*: Requires further hospitalization for management diabetic ketoacidosis, hypertriglyceridemia leading to pancreatitis and his insulin drip was weaned off Critical Care Time: The high probability of a clinically significant, sudden or life threatening deterioration of the patient's [endocrine, renal] system(s) required my full and direct attention, intervention and personal management. The critical care time is as shown. This time is in addition to time spent performing any reported procedures but includes the following: [x] Data and vital sign review and interpretation [x] Patient assessment, examination and intervention [x] Documentation [x] Medication orders and management Critical Care Time (min): 60 Coding Level of Care Code Critical Care >/= 30 minutes Critical care time (in minutes): 60 The high probability of a clinically significant, sudden or life threatening deterioration, as referenced in this documentation, required my full and direct attention, intervention and personal management. The critical care time shown is in addition to time spent performing any reported separately billable procedures and includes the following: [x] Data and vital sign review and interpretation [x ] Patient assessment, examination and intervention [x] Medication orders and management [x] Patient/Family updates as able [x] Care Coordination and Documentation. Diagnoses DKA (diabetic ketoacidosis) E11.10 Diabetes mellitus complication detail: without coma Diabetes mellitus type: type 2 SUSAN (acute kidney injury) N17.9 Hypertriglyceridemia E78.1 Pancreatitis K85.90 Hyperkalemia E87.5 Hyperlipidemia E78.5 Blood pressure elevated without history of HTN R03.0
[2024-02-08 17:07] LABS: Glucose Point of Care 277 mg/dL (70-110)
[2024-02-08 19:34] LABS: Blood Urea Nitrogen 13 mg/dL (6-20); Calcium 8.6 mg/dL (8.5-10.5); Carbon Dioxide 14 mmol/L (22-29); Chloride 107 mmol/L (98-107); Creatinine Clr Calc Pharmacy 150.7976; Glomerular Filtration Rate 114.3 mL/min (90-130); Glucose 319 mg/dL (65-115); Osmolality Calculated 292 mOsm/kg (285-295); Sodium 135 mmol/L (136-145); Triglycerides 537 mg/dL (0-150)
[2024-02-08 19:53] LABS: LDL Cholesterol Direct 89 mg/dL (0-100)
[2024-02-08 20:35] LABS: Glucose Point of Care 328 mg/dL (70-110)
[2024-02-08] MEDS: atorvastatin 40 mg Tablet PO (20:40)
[2024-02-08] MEDS: pantoprazole 40 mg SDV IVP (20:40)
[2024-02-09] VITALS (10 sets, daily range): BP systolic 99–168; BP diastolic 82–93; PULSE 85–104; RESP 14–22; TEMP 37.1; O2SAT 95–98
[2024-02-09 04:45] LABS: Basophils % 0.4 %; Eosinophils # 0.2 10^3/uL (0.0-0.8); Eosinophils % 3.1 %; Hematocrit 40.1 % (37-53); Lymphocytes # 1.6 10^3/uL (0.8-4.8); Lymphocytes % 30.3 %; Mean Corpuscular HGB Conc 31.7 g/dL (30-55); Mean Corpuscular Hemoglobin 20.3 pg (27-33); Monocytes # 0.4 10^3/uL (0.2-0.9); Monocytes % 8.1 %; Neutrophils # 2.94 10^3/uL (1.8-7.7); Neutrophils % 56.7 %; Nucleated Red Blood Cells % 0 %; Platelet Count 172 10^3/cmm (157-399); Red Blood Count 6.27 10^6/uL (3.85-5.65); Red Cell Distribution Width 17.3 % (12.1-15.1); White Blood Count 5.18 10^3/uL (3.29-11.43)
[2024-02-09 05:08] LABS: Alanine Aminotransferase 32 U/L (0-41); Albumin Level 3.7 g/dL (3.5-5.2); Alkaline Phosphatase 71 U/L (40-130); Anion Gap 20.7 (5-19); Aspartate Amino Transferase 24 U/L (0-40); Blood Urea Nitrogen 11 mg/dL (6-20); Calcium 8.4 mg/dL (8.5-10.5); Carbon Dioxide 18 mmol/L (22-29); Chloride 103 mmol/L (98-107); Creatinine Clr Calc Pharmacy 135.7178; Globulin 2.8 g/dL (1.3-4.6); Glomerular Filtration Rate 101.2 mL/min (90-130); Glucose 292 mg/dL (65-115); Osmolality Calculated 296 mOsm/kg (285-295); Potassium 3.7 mmol/L (3.5-5.1); Sodium 138 mmol/L (136-145); Total Bilirubin 0.4 mg/dL (0.15-1.2); Total Protein 6.5 g/dL (6.6-8.7)
[2024-02-09 07:29] LABS: Glucose Point of Care 302 mg/dL (70-110)
[2024-02-09] MEDS: sodium chloride 0.9% 1,000 ML 100 ML IV (08:18)
[2024-02-09] MEDS: aspirin 81 mg EC Tablet PO (08:19)
[2024-02-09] MEDS: insulin glargine 100 units/1 mL 15 UNIT SUBCUT (08:19)
[2024-02-09] MEDS: insulin lispro 100 unit/1 mL SUBCUT ×2 (08:19→12:10)
[2024-02-09] MEDS: ezetimibe 10 mg Tablet PO (08:20)
[2024-02-09] MEDS: amlodipine 10 mg Tablet PO (11:17)
--- NOTE | 2024-02-09 11:24 | P.DS_ITS ---
Discharge Providers Date of Admission: 02/06/24 20:15 Date of Discharge: February 09, 2024 Attending Provider at Admission: Campbell Alexander MD Attending Provider at Discharge: Campbell Alexander MD Primary Care Provider: Adolfo Pace MD Diagnoses at Discharge Discharge Diagnosis (1) DKA (diabetic ketoacidosis): Status: Acute Qualifiers: Diabetes mellitus complication detail: without coma Diabetes mellitus type: type 2 Qualified Code(s): E11.10 - Type 2 diabetes mellitus with ketoacidosis without coma (2) SUSAN (acute kidney injury): Status: Acute (3) Hypertriglyceridemia: Status: Acute (4) Pancreatitis: Status: Acute (5) Hyperkalemia: Status: Acute (6) Hyperlipidemia: Status: Acute (7) Blood pressure elevated without history of HTN: Status: Acute Reason for Visit Reason for Visit: SOB, high BP, dehydrated, doctor sent Brief History: Barrera Guerra is a 38 year old male with a known history of diabetes mellitus diagnosed around 2 years ago, typically on metformin 500 mg daily. Presented to the hospital today with chief complaints of noticing high blood sugar levels at home. Patient states that he has recently had dietary indiscretion. It was his birthday over the weekend and to celebrate he had alcohol, orange juice and has been drinking [employer] frappe's recently. His blood sugar tested at home was more than 500. He has been having abdominal pain. Today he had no appetite and ate mostly oranges and then proceeded to have vomiting. He had been able unable to hold on to any p.o. intake. Typically follows with Dr. Pace as an outpatient. States that recently Ozempic was added to his treatment regimen. Does not recall his A1c. Denies feeling sick recently. No diarrhea. No URI type symptoms. No cough dyspnea palpitations or syncope. He is alert awake and oriented, however does appear to be falling asleep very easily when not engaged in conversation. Appears to be dehydrated. Hospital Course Hospital Course Patient was admitted to the ICU for evaluation management of high anion gap metabolic acidosis in setting of diabetic ketoacidosis and acute kidney injury. He was started on DKA protocol with IV fluids and insulin drip. He was also found to have hypertriglyceridemia and elevated lipase with concerns for pancreatitis though patient did not have much symptoms. Gradually and very slowly patient's anion gap and dehydration improved. Patient have done well on carb consistent diet. He has been discharged in hemodynamically stable condition on Lantus 25 units twice daily along with short acting insulin/Humalog 3 times a day as per sliding scale. He is to take amlodipine and losartan at home for high blood pressure. Hydrochlorothiazide has been discontinued for now. He is to maintain a blood sugar and the blood pressure diary and follow-up with his primary care provider within next 2 weeks. Target fasting blood sugars are less than 120 and prelunch and predinner blood sugars are less than 140. Target blood pressure is less than 140/90 mmHg. He started on atorvastatin 40 mg nightly and ezetimibe 10 mg daily for hypertriglyceridemia. He should have a repeat lipid panel checked in 6 months. Discharge plan discussed in detail with the patient all the questions were answered with family at bedside. He will follow-up with dietitian as an outpatient. Physical Exam Narrative: General: No acute distress, AO x3, HEENT: PERRLA, pupils bilaterally equal and reactive, pallors not present Chest: Normal vesicular breath sounds, no added sounds, equal good air entry bilaterally CVS: S1-S2 regular, no murmurs, no tachycardia, no gallops, no rubs Abdomen: Soft, nontender, no organomegaly, bowel sounds present Neuro: No focal deficits, no facial deformity, AO x3, power 5/5 in all limbs Discharge Data Studies Completed and Pending Pending at discharge Category Date Time Status T4, Thyroxine, Total AM LABS Lab 02/07/24 00:20 Received Laboratory Results WBC 5.18 10^3/uL (3.29-11.43) 02/09/24 04:14 RBC 6.27 10^6/uL (3.85-5.65) H 02/09/24 04:14 Hgb 12.70 g/dL (11.27-16.99) 02/09/24 04:14 Hct 40.1 % (37-53) 02/09/24 04:14 MCV 64.0 fl (82-101) L 02/09/24 04:14 MCH 20.3 pg (27-33) L 02/09/24 04:14 MCHC 31.7 g/dL (30-55) 02/09/24 04:14 RDW 17.3 % (12.1-15.1) H 02/09/24 04:14 Plt Count 172 10^3/cmm (157-399) 02/09/24 04:14 MPV Not Reportable 02/09/24 04:14 Neut % (Auto) 56.7 % 02/09/24 04:14 Lymph % (Auto) 30.3 % 02/09/24 04:14 Bullock % (Auto) 8.1 % 02/09/24 04:14 Eos % (Auto) 3.1 % 02/09/24 04:14 Baso % (Auto) 0.4 % 02/09/24 04:14 Neut # (Auto) 2.94 10^3/uL (1.8-7.7) 02/09/24 04:14 Lymph # (Auto) 1.6 10^3/uL (0.8-4.8) 02/09/24 04:14 Bullock # (Auto) 0.4 10^3/uL (0.2-0.9) 02/09/24 04:14 Eos # (Auto) 0.2 10^3/uL (0.0-0.8) 02/09/24 04:14 Baso # (Auto) 0.0 10^3/uL (0.0-0.1) 02/09/24 04:14 Nucleated RBC % (auto) 0 % 02/09/24 04:14 Nucleated RBCs # 0.0 /100WBC 02/09/24 04:14 Specimen Type Arterial 02/06/24 19:30 Sample Site Radial, right 02/06/24 19:30 ABG pH 7.22 (7.35-7.45) L 02/06/24 19:30 ABG pCO2 22.7 mmHg (35-45) L 02/06/24 19:30 ABG pO2 114.0 mmHg (80.0-100.0) H 02/06/24 19:30 ABG HCO3 9.3 mmol/L (22-26) L 02/06/24 19:30 ABG Base Excess -16.3 mmol/L (-2.0-2.0) L 02/06/24 19:30 Romie Test Pos 02/06/24 19:30 Hematocrit 45.3 % (42-52) 02/06/24 19:30 O2 Delivery Device Room air 02/06/24 19:30 Medical Appointment Clerk ID [email or web address] 02/06/24 19:30 Sodium 138 mmol/L (136-145) 02/09/24 04:14 Potassium 3.7 mmol/L (3.5-5.1) 02/09/24 04:14 Chloride 103 mmol/L (98-107) 02/09/24 04:14 Carbon Dioxide 18 mmol/L (22-29) L 02/09/24 04:14 Anion Gap 20.7 (5-19) H 02/09/24 04:14 BUN 11 mg/dL (6-20) 02/09/24 04:14 Creatinine 1.0 mg/dL (0.7-1.2) 02/09/24 04:14 GFR Calculation 101.2 mL/min (90-130) 02/09/24 04:14 Glucose 292 mg/dL (65-115) H 02/09/24 04:14 POC Glucose 302 mg/dL (70-110) H 02/09/24 07:26 Estimat Average Glucose 269 02/07/24 03:44 Hemoglobin A1c 11.0 % (4.0-6.0) H 02/07/24 03:44 Calculated Osmolality 296 mOsm/kg (285-295) H 02/09/24 04:14 Calcium 8.4 mg/dL (8.5-10.5) L 02/09/24 04:14 Phosphorus 2.8 mg/dL (2.5-4.5) D 02/07/24 03:44 Magnesium 2.9 mg/dL (1.7-2.3) H 02/07/24 03:44 Iron 65 ug/dL (59-158) 02/06/24 21:15 TIBC 292 mcg/dl 02/06/24 21:15 % Saturation 22.2 % (20-50) 02/06/24 21:15 Unsat Iron Binding 227 ug/dL (112-347) 02/06/24 21:15 Total Bilirubin 0.4 mg/dL (0.15-1.2) 02/09/24 04:14 AST 24 U/L (0-40) 02/09/24 04:14 ALT 32 U/L (0-41) 02/09/24 04:14 Alkaline Phosphatase 71 U/L (40-130) 02/09/24 04:14 Total Protein 6.5 g/dL (6.6-8.7) L 02/09/24 04:14 Albumin 3.7 g/dL (3.5-5.2) 02/09/24 04:14 Globulin 2.8 g/dL (1.3-4.6) 02/09/24 04:14 Triglycerides 537 mg/dL (0-150) H 02/08/24 18:39 Cholesterol 234 mg/dL (0-200) H 02/07/24 03:44 LDL Cholesterol Direct 89 mg/dL (0-100) 02/08/24 18:39 LDL Cholesterol, Calc Not Reportable 02/07/24 03:44 Total VLDL Cholesterol 167 mg/dL (0-30) H 02/07/24 03:44 HDL Cholesterol 38 mg/dL (60-100) L 02/07/24 03:44 LDL/HDL Ratio Not Reportable 02/07/24 03:44 Cholesterol/HDL Ratio 6.16 mg/dL (1.0-5.00) H 02/07/24 03:44 Lipase 804 U/L (13-60) H 02/08/24 09:29 Folate 6.2 ng/mL (4.5-32.2) 02/07/24 03:44 Procalcitonin 0.25 ng/mL (0-0.5) 02/06/24 21:15 TSH 0.16 uIU/mL (0.27-4.20) L 02/06/24 21:15 Free T4 1.13 ng/dL (0.82-1.77) 02/07/24 16:45 Free T3 1.7 PG/ML (2.0-4.4) L 02/07/24 03:44 Urine Color Yellow (Yellow) 02/06/24 19:04 Urine Appearance Clear (CLEAR) 02/06/24 19:04 Urine pH 5 (5-7) 02/06/24 19:04 Ur Specific [place] 1.005 (1.005-1.030) 02/06/24 19:04 Urine Protein Neg (Negative) 02/06/24 19:04 Urine Glucose (UA) 4+ (Normal) H 02/06/24 19:04 Urine Ketones 2+ (Negative) H 02/06/24 19:04 Urine Blood Neg (Negative) 02/06/24 19:04 Urine Nitrate Negative (Negative) 02/06/24 19:04 Urine Bilirubin Neg (Negative) 02/06/24 19:04 Urine Urobilinogen Norm mg/dL (Negative) 02/06/24 19:04 Ur Leukocyte Esterase Negative (Negative) 02/06/24 19:04 Serum Ketones Positive (Negative) H 02/06/24 18:34 Vitals Last Vital Signs Temp 98.8 F 02/09/24 04:00 Pulse 85 02/09/24 08:00 Resp 16 02/09/24 08:00 BP 159/89 02/09/24 08:00 Pulse Ox 97 02/09/24 08:00 O2 Del Method Room Air 02/09/24 08:00 Discharge Plan Discharge Patient Disposition: Home Condition: Stable Prescriptions: New atorvastatin 40 mg Tablet 40 mg PO BEDTIME Qty: 30 0RF aspirin 81 mg Tablet,Delayed Release (Dr/Ec) 81 mg PO DAILY Qty: 30 0RF ezetimibe 10 mg Tablet 10 mg PO DAILY Qty: 30 0RF Lantus Solostar U-100 Insulin 100 unit/mL (3 mL) insulin pen 25 unit SUBCUT BID Qty: 15 0RF Humalog KwikPen Insulin 100 unit/mL insulin pen See Protocol SUBCUT BID Qty: 15 0RF Protocol: Insulin Corrective High-Dose Regimen Condition: Fingerstick Blood Glucose Dose/Route: Insulin Units Condition: 141-180 mg/dl Dose/Route: 4 units/SQ Condition: 181-220 mg/dl Dose/Route: 6 units/SQ Condition: 221-260 mg/dl Dose/Route: 8 units/SQ Condition: 261-300 mg/dl Dose/Route: 10 units/SQ Condition: 301-350 mg/dl Dose/Route: 12 units/SQ Condition: 351-400 mg/dl Dose/Route: 14 units/SQ Condition: greater than 400 mg/dl Dose/Route: 18 units/SQ losartan 50 mg tablet 50 mg PO DAILY Qty: 30 0RF Continued amlodipine 10 mg Tablet 10 mg PO DAILY Discontinued metformin 500 mg Tablet 500 mg PO BID losartan-hydrochlorothiazide 50-12.5 mg Tablet 1 tab PO DAILY Discharge Orders: Discharge Order (Routine); Ordered 02/09/24 Ordered By: Campbell Alexander Referrals: Adolfo Pace MD [Primary Care Provider] - 2 weeks Discharge Diet: Cardiac and Diabetic Discharge Activity: Resume usual activity and Increase activity as tolerated Patient Instructions: Aspirin (By mouth), Atorvastatin (By mouth) (Lipitor, Atorvaliq), Ezetimibe (By mouth), Insulin Regular (By injection) (Novolin R, Humulin R, Humulin R..., Insulin Glargine (By injection) (Lantus, Lantus SoloStar, Toujeo, Semglee), Hypertension, Pancreatitis (DC), How to Take a Blood Pressure Reading (DC), Diabetic Ketoacidosis (DC), Insulin Pens (DC), Hyperlipidemia (DC), Opioid Safety Activity Restrictions/Additional Instructions: Going forward you need to be on 25 units of Lantus which is a long-acting insulin twice daily. Along with that you will be on short acting insulin/Humalog 3 times a day premeals. Target blood sugars are as follows. Fasting should be less than 120, premeals should be less than 140. He should have a repeat A1c checked in 6 months. Your dose of losartan has been changed to 50 mg oral daily. Do not take hydrochlorothiazide for now. Goal blood pressure should be less than 140/90 mmHg. Please maintain a blood sugar diary and follow-up with a primary care provider within next 2 weeks for further adjustment of your insulin dose. You are also on 2 different medications for your cholesterol. You will be on atorvastatin 40 mg daily along with ezetimibe. You should have a repeat lipid panel checked in 6 months. Discharge Attestations Time Spent in Discharge Care*: greater than 30 min Specific Discharge Activities: educating patient, educating and/or supporting family/caregiver, discussing with pcp/other providers, discussing with keycase assembler/social workers/dc planners, documenting/other paperwork and evaluating patient/reviewing data Status at Discharge: Cognitive status at discharge: cognitively intact , Behavioral status at discharge: cooperative , Functional status at discharge: independent ambulation , Overall status at discharge: patient is back to baseline Quality Metrics Clinical Quality Measures [ No reported AMI, CVA or VTE this stay] Coding Level of Care Code 14814 Total time (in minutes) for Discharge: 70 Diagnoses DKA (diabetic ketoacidosis) E11.10 Diabetes mellitus complication detail: without coma Diabetes mellitus type: type 2 SUSAN (acute kidney injury) N17.9 Hypertriglyceridemia E78.1 Pancreatitis K85.90 Hyperkalemia E87.5 Hyperlipidemia E78.5 Blood pressure elevated without history of HTN R03.0
[2024-02-09 11:59] LABS: Glucose Point of Care 383 mg/dL (70-110)
--- NOTE | 2024-02-09 13:09 | PC.NURSE ---
Extensive education provided to patient on insulin use, diet changes, activity, blood pressure control, DKA, hydration, and pancreatitis as well as cholesterol control. Patient and family had no questions at the time of discharge. IVs removed with no complications. Written education provided and copied for family to also review. Patient brought via wheelchair to personal vehicle. Patient is to follow up tomorrow 6-17-24 ,with primary care for appointment. Patient medications are at [facility] pharmacy and are ready for pick up man, patient verbalizes understanding of all teachings.
[2024-02-09 16:13] LABS: T4 Total 4.7 mcg/dL (4.9-10.5)
== END 2024-02-09 13:14 | disposition home or self-care (01) | DRG 637 ==
LOC: ER 19:44 → ICU 20:16
PROVIDERS: Emergency Medicine; Student in an Organized Health Care Education/Training Program; Admitting Provider Student in an Organized Health Care Education/Training Program; Emergency Provider Nurse Practitioner Family; PCP Family Medicine; Visit Provider Student in an Organized Health Care Education/Training Program
DX: E11.10 Type 2 diabetes mellitus with ketoacidosis without coma (principal); K85.90 Acute pancreatitis without necrosis or infection, unspecified; N17.9 Acute kidney failure, unspecified; Z79.85 Long-term (current) use of injectable non-insulin antidiabetic drugs; Z79.84 Long term (current) use of oral hypoglycemic drugs; E87.5 Hyperkalemia; E78.5 Hyperlipidemia, unspecified; E03.8 Other specified hypothyroidism; E86.0 Dehydration; E78.1 Pure hyperglyceridemia; I10 Essential (primary) hypertension
CPT/HCPCS: 36415; 36416; 36600; 80048; 80053; 80061; 81003; 82009; 82746; 82803; 82962; 83036; 83540; 83550; 83690; 83721; 83735; 84100; 84145; 84436; 84439; 84443; 84478; 84481; 85025; 93005; 94664; 96365; 96367; 96372; 96374; 96375; 96376; 99285; C9113; J0612; J1644; J1815; J2270; J2405; J7030; J7042